=== PATIENT | female | born 1985 | race Asian ===

== ENCOUNTER 2017-04-21 23:56 | Emergency (ER) | payer SELFPAY ==
[~2017-04-21] VITALS: Ht 160 cm; Wt 83.9 kg
[2017-04-22 04:29] VITALS: BP 153/99
== END 2017-04-22 04:29 | disposition left against medical advice (07) ==
LOC: ED 23:56
DX: Z53.21 Procedure and treatment not carried out due to patient leaving prior to being seen by health care provider (principal)